=== PATIENT | female | born 1990 | race Hispanic/Latino ===

== ENCOUNTER 2019-06-16 03:09 | Emergency (ER) | payer OTHER, SELFPAY ==
[2019-06-16] MEDS ORDERED: ONDANSETRON 4 MG/2 ML VIAL ONE (03:36)
[2019-06-16] MEDS ORDERED: NA CHLORIDE 0.9% 1,000 ML ONE (03:36)
[2019-06-16 04:07] LABS: Absolute Lymphocytes (CBC) 1.8 K/uL (0.7-4.9); Basophils % 0.4 % (0-1.3); Hematocrit 34.5 % (36.0-45.0); Lymphocytes % 17.7 % (15.3-44.8); RBC Red Blood Cell Count 3.91 M/uL (3.86-4.86)
[2019-06-16 04:16] LABS: ALT/SGPT 78 U/L (12-78); AST/SGOT 41 U/L (15-37); Albumin 3.2 g/dL (3.4-5.0); Alkaline Phosphatase 46 U/L (45-117); BUN Blood Urea Nitrogen 9 mg/dL (7-18); Bicarbonate 23 mmol/L (21-32); Bilirubin Direct < 0.1 mg/dL (0-0.2); Bilirubin Total 0.3 mg/dL (0.2-1.0); Glucose Level 103 mg/dL (74-106); Lipase 71 U/L (73-393); Potassium 3.8 mmol/L (3.5-5.1); Sodium Level 138 mmol/L (136-145)
--- NOTE | 2019-06-16 04:38 | ER ---
Nurse's Notes [facility] Name: Malaika Lazo Age: 28 yrs Sex: Female : 1990 Arrival Date: 06/16/2019 Time: 03:10 Bed 14 Private MD: Diagnosis: Other viral enteritis Presentation: 06/15 03:23 Chief complaint: Patient states: she has had abdominal pain and diarrhea x 2 days the bb pain is generalized denies vomiting but has nausea denies vaginal bleeding. Coronavirus screen: The patient has NOT traveled to a country currently being monitored by the [facility] within the last 14 days. Proceed with normal triage procedures. Ebola Screen: No symptoms or risks identified at this time. Initial Sepsis Screen: Does the patient meet any 2 criteria? No. Patient's initial sepsis screen is negative. Does the patient have a suspected source of infection? No. Patient's initial sepsis screen is negative. Risk Assessment: Do you want to hurt yourself or someone else? Patient reports no desire to harm self or others. Onset of symptoms was June 14, 2019. 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 - Social history:: Smoking status: Patient denies any tobacco usage or history of. Screenin:12 Abuse screen: Denies threats or abuse. Denies injuries from another. Nutritional mg2 screening: No deficits noted. Tuberculosis screening: No symptoms or risk factors identified. Fall Risk IV access (20 points). Assessment: 04:11 General: Appears in no apparent distress. comfortable, Behavior is calm, cooperative. mg2 Pain: Complains of pain in abdomen Quality of pain is described as crampy, Pain began gradually, Is intermittent. Neuro: Level of Consciousness is awake, alert, obeys commands, Oriented to person, place, time, situation. Cardiovascular: Capillary refill < 3 seconds Patient's skin is warm and dry. Respiratory: Airway is patent Respiratory effort is even, unlabored, Respiratory pattern is regular, symmetrical. GI: Bowel sounds present X 4 quads. Abd is soft and non tender Reports diarrhea. GI: Reports nausea, vomiting. : No signs and/or symptoms were reported regarding the genitourinary system. EENT: No signs and/or symptoms were reported regarding the EENT system. Derm: Skin is intact, is healthy with good turgor, Skin is pink, warm \T\ dry. normal. Musculoskeletal: Circulation, motion, and sensation intact. Capillary refill < 3 seconds. 04:57 Reassessment: Patient appears in no apparent distress at this time. Patient and/or mg2 family updated on plan of care and expected duration. Pain level reassessed. Patient is alert, oriented x 3, equal unlabored respirations, skin warm/dry/pink. Patient states feeling better. Vital Signs: 03:23 BP 104 / 69; Pulse 87; Resp 16 S; Temp 98.5(O); Pulse Ox 96% on R/A; Weight 90.72 kg bb (R); Height 5 ft. 2 in. (157.48 cm) (R); Pain 6/10; 04:57 BP 110 / 78; Pulse 80; Resp 17; Temp 98(O); Pulse Ox 100% ; mg2 03:23 Body Mass Index 36.58 (90.72 kg, 157.48 cm) bb Vitals: 04:19 Heart Tones 154 bpm. mg2 ED Course: 03:10 Patient arrived in ED. ds1 03:20 Anand Weathers MD is Attending Physician. tw4 03:25 Triage completed. bb 03:25 Arm band placed on Patient placed in an exam room, on a stretcher, on pulse oximetry. bb Family accompanied patient. 03:30 Stephen Simmons RN is Primary Nurse. mg2 03:55 Inserted saline lock: 20 gauge in right antecubital area, using aseptic technique. mg2 Blood collected. 04:12 No provider procedures requiring assistance completed. mg2 04:13 Patient has correct armband on for positive identification. Placed in gown. Call light mg2 in reach. Side rails up X 1. Pulse ox on. NIBP on. Door closed. Warm blanket given. 04:57 IV discontinued, intact, bleeding controlled, No redness/swelling at site. Pressure mg2 dressing applied. Administered Medications: 03:35 Drug: NS 0.9% 1000 ml Route: IV; Rate: 1 bolus; Site: right antecubital; mg2 03:35 Drug: Zofran (Ondansetron) 4 mg Route: IVP; Site: right antecubital; mg2 Outcome: 04:37 Discharge ordered by . tw4 04:57 Discharged to home ambulatory, with family. mg2 04:57 Condition: stable 04:57 Discharge instructions given to patient, family, Instructed on discharge instructions, follow up and referral plans. medication usage, Demonstrated understanding of instructions, follow-up care, medications, Prescriptions given X 1. 04:58 Patient left the ED. mg2 Signatures: Lydia Bey ds1 Opal Earl, RN RN bb Anand Weathers MD MD tw4 Stephen Simmons RN RN mg2
--- NOTE | 2019-06-16 04:39 | EDPHYS ---
Physician Documentation [facility] Name: Malaika Lazo Age: 28 yrs Sex: Female : 1990 Arrival Date: 06/16/2019 Time: 03:10 Bed 14 Private MD: ED Physician Anand Weathers HPI: 06/15 04:29 This 28 yrs old Female presents to ER via Ambulatory with complaints of tw4 Abdominal Pain, 14 Wks Preg. 04:29 The patient presents to the emergency department with nausea, diarrhea. Onset: The tw4 symptoms/episode began/occurred yesterday. Possible causes: unknown, sick contacts, by a friend. The symptoms are aggravated by nothing. The symptoms are alleviated by nothing. Associated signs and symptoms: Pertinent positives: abdominal pain, Pertinent negatives: vaginal discharge. Severity of symptoms: At their worst the symptoms were moderate in the emergency department the symptoms have improved. The patient has not experienced similar symptoms in the past. 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 - Social history:: Smoking status: Patient denies any tobacco usage or history of. ROS: 04:29 Constitutional: Negative for fever, chills, and weight loss, Eyes: Negative for injury, tw4 pain, redness, and discharge, Cardiovascular: Negative for chest pain, palpitations, and edema, Respiratory: Negative for shortness of breath, cough, wheezing, and pleuritic chest pain, Back: Negative for injury and pain, MS/Extremity: Negative for injury and deformity, Skin: Negative for injury, rash, and discoloration. 04:29 Abdomen/GI: Positive for abdominal pain, nausea, diarrhea, abdominal cramps, Negative for vomiting, anorexia, dysphagia, hematemesis, black/tarry stool, rectal pain, rectal bleeding, bowel incontinence, flatulence. 04:29 : Negative for injury, bleeding, discharge, and swelling. tw4 Exam: 04:29 Constitutional: This is a well developed, well nourished patient who is awake, alert, tw4 and in no acute distress. Head/Face: Normocephalic, atraumatic. Chest/axilla: Normal chest wall appearance and motion. Nontender with no deformity. No lesions are appreciated. Cardiovascular: Regular rate and rhythm with a normal S1 and S2. No gallops, murmurs, or rubs. Normal PMI, no JVD. No pulse deficits. Respiratory: Lungs have equal breath sounds bilaterally, clear to auscultation and percussion. No rales, rhonchi or wheezes noted. No increased work of breathing, no retractions or nasal flaring. Back: No spinal tenderness. No costovertebral tenderness. Full range of motion. MS/ Extremity: Pulses equal, no cyanosis. Neurovascular intact. Full, normal range of motion. Neuro: Awake and alert, GCS 15, oriented to person, place, time, and situation. Cranial nerves II-XII grossly intact. Motor strength 5/5 in all extremities. Sensory grossly intact. Cerebellar exam normal. Normal gait. 04:29 Abdomen/GI: Inspection: abdomen appears normal, Bowel sounds: diminished, in all quadrants, Palpation: mild abdominal tenderness, in the epigastric area. Vital Signs: 03:23 BP 104 / 69; Pulse 87; Resp 16 S; Temp 98.5(O); Pulse Ox 96% on R/A; Weight 90.72 kg bb (R); Height 5 ft. 2 in. (157.48 cm) (R); Pain 6/10; 04:57 BP 110 / 78; Pulse 80; Resp 17; Temp 98(O); Pulse Ox 100% ; mg2 03:23 Body Mass Index 36.58 (90.72 kg, 157.48 cm) bb MDM: 03:20 Patient medically screened. tw4 04:29 Differential diagnosis: Nonspecific abd pain, gastritis. Data reviewed: vital signs, tw4 nurses notes, lab test result(s), CBC, electrolytes, hepatic panel, urinalysis. Data interpreted: Pulse oximetry: Interpretation: normal. Counseling: I had a detailed discussion with the patient and/or guardian regarding: the historical points, exam findings, and any diagnostic results supporting the discharge/admit diagnosis, lab results. Special discussion: I discussed with the patient/guardian in detail that at this point there is no indication for admission to the hospital. It is understood, however, that if the symptoms persist or worsen the patient needs to return immediately for re-evaluation. 06/15 03:30 Order name: Basic Metabolic Panel; Complete Time: 04:28 06/15 04:29 Interpretation: Normal except: CL 109. 06/15 03:30 Order name: CBC with Diff; Complete Time: 04:28 06/15 04:28 Interpretation: Normal except: HGB 11.3; HCT 34.5. 06/15 03:30 Order name: Creatinine for Radiology; Complete Time: 04:28 06/15 04:28 Interpretation: Within normal limits. 06/15 03:30 Order name: Hepatic Function; Complete Time: 04:28 06/15 04:28 Interpretation: Normal except: AST 41; ALB 3.2; GLOB 3.8; A/G 0.8. 06/15 03:30 Order name: Lipase; Complete Time: 04:28 06/15 04:28 Interpretation: Normal except: LIP 71. 06/15 03:30 Order name: IV Saline Lock; Complete Time: 04:14 06/15 03:30 Order name: Labs collected and sent; Complete Time: 04:14 06/15 03:30 Order name: Urine Dipstick-Ancillary (obtain specimen); Complete Time: 04:14 06/15 03:30 Order name: Urine Test (obtain specimen); Complete Time: 04:14 Administered Medications: 03:35 Drug: NS 0.9% 1000 ml Route: IV; Rate: 1 bolus; Site: right antecubital; mg2 03:35 Drug: Zofran (Ondansetron) 4 mg Route: IVP; Site: right antecubital; mg2 Disposition: 06/16/19 04:37 Discharged to Home. Impression: Other viral enteritis. - Condition is Stable. - Discharge Instructions: Food Choices to Help Relieve Diarrhea, Adult, Nausea, Adult, Viral Gastroenteritis, Adult. - Prescriptions for Zofran 4 mg Oral Tablet - take 1 tablet by ORAL route every 12 hours As needed; 6 tablet. - Medication Reconciliation Form, Thank You Letter, Antibiotic Education, Prescription Opioid Use, Work release form form. - Follow up: Private Physician; When: Upon discharge from the Emergency Department; Reason: Recheck today's complaints, Continuance of care, Re-evaluation by your physician. - Problem is new. - Symptoms have improved. Signatures: Dispatcher [employer] EDOpal Hunt RN RN Anand Grossman MD MD tw4 Stephen Simmons RN RN mg2 Corrections: (The following items were deleted from the chart) 04:29 04:28 Normal except: CO2 23. tw4 tw4 04:58 04:37 06/16/2019 04:37 Discharged to Home. Impression: Other viral enteritis. Condition mg2 is Stable. Forms are Medication Reconciliation Form, Thank You Letter, Antibiotic Education, Prescription Opioid Use. Follow up: Private Physician; When: Upon discharge from the Emergency Department; Reason: Recheck today's complaints, Continuance of care, Re-evaluation by your physician. Problem is new. Symptoms have improved. tw4
[2019-06-16 05:10] VITALS: BP 110/78; TEMP 98; O2SAT 100
== END 2019-06-16 04:58 | disposition home or self-care (01) ==
LOC: ER 03:09
DX: O26.892 Other specified pregnancy related conditions, second trimester (principal); A08.4 Viral intestinal infection, unspecified
CPT/HCPCS: 36415; 80048; 80076; 83690; 85025; 96374; 99284; J2405; J7030